=== PATIENT | female | born 1935 | race Caucasian/White ===

== ENCOUNTER → 2016-05-12 | Outpatient (CLI) | payer OTHER | LOC: BMCIMAGING 10:20 | PROVIDERS: ATTEND Internal Medicine Rheumatology | DX: Z13.820 Encounter for screening for osteoporosis (principal); M81.0 Age-related osteoporosis without current pathological fracture ==

== ENCOUNTER → 2016-11-02 | Outpatient (CLI) | payer OTHER | LOC: BMCIMAGING 13:09 | PROVIDERS: ATTEND Registered Nurse General Practice | DX: Z12.31 Encounter for screening mammogram for malignant neoplasm of breast (principal) | CPT/HCPCS: G0202 ==

== ENCOUNTER 2018-01-31 17:31 | Inpatient (IN) | payer OTHER ==
[2018-01-31] MEDS ORDERED: methylPREDNISolone SOD SUCC 125 MG/2 ML VIAL IVP ONE (17:58)
[2018-01-31] MEDS ORDERED: NS 500 ML IV ONE (17:58)
[2018-01-31] MEDS ORDERED: IPRATROPIUM/ALBUTEROL 3 ML DEYVIAL IH ONE (17:58)
[2018-01-31 18:00] LABS: PLATELET COUNT 339 10^3/uL (150-400)
[2018-01-31] MEDS ORDERED: IOPAMIDOL (ISOVUE 370) 100 ML BTL IV ONE (18:00)
--- NOTE | 2018-01-31 18:01 | CPEKG ---
Test Reason : OPEN Blood Pressure : / mmHG Vent. Rate : 101 BPM Atrial Rate : 102 BPM P-R Int : 200 ms QRS Dur : 121 ms QT Int : 359 ms P-R-T Axes : 219 -79 026 degrees QTc Int : 466 ms Sinus or ectopic atrial tachycardia Right bundle branch block Lateral infarct, old Borderline ST elevation, anterior leads Confirmed by Nitin Beltre ([id number]) on 01/31/2018 6:01:20 PM Referred By: Confirmed By:Nitin Beltre
--- NOTE | 2018-01-31 18:03 | EDPHY ---
H & P Stated Complaint: extended travel returned acute sob/hypoxia Time Seen by Provider: 01/31/18 17:46 HPI/ROS: CHIEF COMPLAINT: Shortness of breath HISTORY OF PRESENT ILLNESS: The patient is an 82-year-old female with a history of COPD, hypertension, chronic respiratory failure with the baseline saturation of 86-89% whose refused oxygen at home in the past who comes to the emergency department today complaining of shortness of breath and has an oxygen in the 70s at triage. She returned from a 3 week trip to the [facility] on Monday and Monday had severe leg cramping and shortness of breath. She is not on any blood thinners. She denies cardiac history other than hypertension. She has been diagnosed with bronchial spasm in the past as well. No recent fevers. Dry cough. Severity: Moderate Modifying factors: None REVIEW OF SYSTEMS: Constitutional: denies: chills, fever, recent illness, recent injury EENTM: denies: blurred vision, double vision, nose congestion Respiratory: See HPI Cardiac: denies: chest pain, irregular heart rate, lightheadedness, palpitations Gastrointestinal/Abdominal: denies: abdominal pain, diarrhea, nausea, vomiting, blood streaked stools Genitourinary: denies: dysuria, frequency, hematuria, pain Musculoskeletal: denies: joint pain, muscle pain Skin: denies: lesions, rash, jaundice, bruising Neurological: denies: headache, numbness, paresthesia, tingling, dizziness, weakness Hematologic/Lymphatic: denies: blood clots, easy bleeding, easy bruising Immunologic/allergic: denies: HIV/AIDS, transplant 10 systems reviewed and negative except as noted EXAM: GENERAL: Well-appearing, well-nourished and in no acute distress. HEAD: Atraumatic, normocephalic. EYES: Pupils equal round and reactive to light, extraocular movements intact, sclera anicteric, conjunctiva are normal. ENT: TMs normal, nares patent, oropharynx clear without exudates. Moist mucous membranes. NECK: Normal range of motion, supple without lymphadenopathy or JVD. LUNGS: Breath sounds clear to auscultation bilaterally and equal. No wheezes rales or rhonchi. HEART: Regular rate and rhythm without murmurs, rubs or gallops. ABDOMEN: Soft, nontender, normoactive bowel sounds. No guarding, no rebound. No masses appreciated. BACK: No CVA tenderness, no spinal tenderness, step-offs or deformities EXTREMITIES: Normal range of motion, no pitting or edema. No clubbing or cyanosis. NEUROLOGICAL: Cranial nerves II through XII grossly intact. Normal speech, normal gait. 5/5 strength, normal movement in all extremities, normal sensation , normal reflexes PSYCH: Normal mood, normal affect. SKIN: Warm, dry, normal turgor, no visible rashes or lesions. Source: Patient Exam Limitations: No limitations - Personal History Current Tetanus Diphtheria and Acellular Pertussis (TDAP): Yes Tetanus Vaccine Date: < 10 years - Medical/Surgical History Hx Asthma: No Hx Chronic Respiratory Disease: Yes Hx Diabetes: No Hx Cardiac Disease: Yes Hx Renal Disease: No Hx Cirrhosis: No Hx Alcoholism: No Hx HIV/AIDS: No Hx Splenectomy or Spleen Trauma: No Other PMH: COPD, HTN, osteoporsis, appendectomy, cervical spine surgery, tonsillectomy - Family History Significant Family History: No pertinent family hx - Social History Smoking Status: Former smoker Alcohol Use: Sober Drug Use: None Constitutional: Initial Vital Signs Temperature (C) 37.3 C 01/31/18 17:33 Heart Rate 122 H 01/31/18 17:33 Respiratory Rate 34 H 01/31/18 17:33 Blood Pressure 203/90 H 01/31/18 17:33 O2 Sat (%) 70 L 01/31/18 17:33 O2 Delivery Mode Nasal Cannula O2 (L/minute) 4 Allergies/Adverse Reactions: cephalexin monohydrate [From Keflex] Allergy (Verified 01/31/18 17:33) Penicillins Allergy (Verified 01/31/18 17:33) Home Medications: Medication Instructions Recorded Aspirin [Aspirin 81mg (*)] 81 mg PO MOWEFR@0800 07/23/14 Calcium/Magnesium/Vit D3 [Calcium 1 each PO DAILY 07/23/14 500 mg Tablet] Lisinopril [Zestril 20 mg (*)] 20 mg PO HS 07/23/14 Multivitamins [Multivitamin (*)] 1 each PO DAILY 07/23/14 [place]-3 Fatty Acids [Fish Oil 1000 1,000 mg PO BID 01/31/18 mg (*)] Tiotropium [place] [Spiriva 2 puffs IH DAILY 01/31/18 Respimat] Medical Decision Making - Diagnostics EKG Interpretation: An EKG obtained and was read and documented in trace view. Please see trace view for full reading and report. Sinus rhythm, right bundle branch block, slight ST depression anteriorly A repeat EKG obtained and was read and documented in trace view. Please see trace view for full reading and report. Similar to previous Imaging Results: Imaging Impressions Chest/Thorax CTA 01/31/18 17:58 Impression: 1. Small acute embolus within a right middle lobe pulmonary arterial branch. 2. Underlying centrilobular emphysema, with patchy infiltrates in the upper lobes bilaterally, without confluent pneumonia. Results called to Nitin Beltre M.D., at 6:30 p.m. at the time of the interpretation. Imaging: Discussed imaging studies w/ call center analyst Radiologist ED Course/Re-evaluation: 7:00 p.m. We discussed the CT results. The patient understands and is agreeable to the plan. I will start On anticoagulation. Discussed the case with hospital service who will admit. The patient does have patchy infiltrates that could be pneumonitis, bronchitis or early pneumonia. Currently no fever. Will observe. Differential Diagnosis: Partial list of the Differential diagnosis considered include but were not limited to; PE, pneumonia, reactive airway disease, bronchitis and although unlikely based on the history and physical exam, I also considered acute coronary disease, dissection, pneumothorax. - Data Points Laboratory Results: Laboratory Results 01/31/18 17:48 01/31/18 17:48 01/31/18 01/31/18 01/31/18 18:00 17:52 17:52 WBC RBC Hgb POC Hgb 15.6 gm/dL gm/dL (12.6-16.3) Hct POC Hct 46 % % (38-47) MCV MCH MCHC RDW Plt Count MPV Neut % (Auto) Lymph % (Auto) [place] % (Auto) Eos % (Auto) Baso % (Auto) Nucleat RBC Rel Count Absolute Neuts (auto) Absolute Lymphs (auto) Absolute Monos (auto) Absolute Eos (auto) Absolute Basos (auto) Absolute Nucleated RBC Immature Gran % Immature Gran # RBC/WBC/PLT Morphology Platelet Estimate PT 13.7 SEC SEC (12.0-15.0) INR 1.03 (0.83-1.16) APTT 27.8 SEC SEC (23.0-38.0) POC Sodium 138 mEq/L mEq/L (135-145) Sodium POC Potassium 3.8 mEq/L mEq/L (3.3-5.0) Potassium POC Chloride 101 mEq/L mEq/L (97-110) Chloride Carbon Dioxide Anion Gap POC BUN 13 mg/dL mg/dL (7-23) BUN Creatinine POC Creatinine 0.7 mg/dL mg/dL (0.6-1.0) Estimated GFR Glucose POC Glucose 139 mg/dL H mg/dL (70-100) Calcium POC Troponin I 0.00 ng/mL ng/mL (0.00-0.08) 01/31/18 01/31/18 17:48 17:48 WBC 17.85 10^3/uL H 10^3/uL (3.80-9.50) RBC 4.38 10^6/uL 10^6/uL (4.18-5.33) Hgb 13.9 g/dL g/dL (12.6-16.3) POC Hgb Hct 41.9 % % (38.0-47.0) POC Hct MCV 95.7 fL fL (81.5-99.8) MCH 31.7 pg pg (27.9-34.1) MCHC 33.2 g/dL g/dL (32.4-36.7) RDW 14.5 % % (11.5-15.2) Plt Count 339 10^3/uL 10^3/uL (150-400) MPV 10.5 fL fL (8.7-11.7) Neut % (Auto) 76.8 % H % (39.3-74.2) Lymph % (Auto) 10.3 % L % (15.0-45.0) [place] % (Auto) 11.5 % % (4.5-13.0) Eos % (Auto) 0.4 % L % (0.6-7.6) Baso % (Auto) 0.4 % % (0.3-1.7) Nucleat RBC Rel Count 0.0 % % (0.0-0.2) Absolute Neuts (auto) 13.71 10^3/uL H 10^3/uL (1.70-6.50) Absolute Lymphs (auto) 1.84 10^3/uL 10^3/uL (1.00-3.00) Absolute Monos (auto) 2.05 10^3/uL H 10^3/uL (0.30-0.80) Absolute Eos (auto) 0.07 10^3/uL 10^3/uL (0.03-0.40) Absolute Basos (auto) 0.07 10^3/uL 10^3/uL (0.02-0.10) Absolute Nucleated RBC 0.00 10^3/uL 10^3/uL (0-0.01) Immature Gran % 0.6 % % (0.0-1.1) Immature Gran # 0.11 10^3/uL H 10^3/uL (0.00-0.10) RBC/WBC/PLT Morphology TNP Platelet Estimate TNP PT INR APTT POC Sodium Sodium 136 mEq/L mEq/L (135-145) POC Potassium Potassium 4.2 mEq/L mEq/L (3.3-5.0) POC Chloride Chloride 101 mEq/L mEq/L (97-110) Carbon Dioxide 24 mEq/l mEq/l (22-31) Anion Gap 11 mEq/L mEq/L (6-14) POC BUN BUN 14 mg/dL mg/dL (7-23) Creatinine 0.7 mg/dL mg/dL (0.6-1.0) POC Creatinine Estimated GFR > 60 Glucose 134 mg/dL H mg/dL (70-100) POC Glucose Calcium 10.0 mg/dL mg/dL (8.5-10.4) POC Troponin I Medications Given: Albuterol/Ipratropium (Duoneb) 3 ml IH QID [facility] Stop: 07/30/18 20:59 Last Admin: 01/31/18 21:16 Dose: Not Given Enoxaparin Sodium (Lovenox) 70 mg SC BID [facility] Stop: 07/30/18 20:59 Last Admin: 01/31/18 19:15 Dose: 70 mg Sodium Chloride (Ns) 1,000 mls @ 100 mls/hr IV CONT [facility] Stop: 07/30/18 20:44 Last Admin: 01/31/18 21:56 Dose: 1,000 mls Levofloxacin/Dextrose (Levaquin 750 Mg (Premix)) 150 mls @ 100 mls/hr IV DAILY [facility] PRN Reason: Protocol Stop: 03/02/18 20:59 Last Admin: 01/31/18 21:54 Dose: 150 mls Discontinued Medications Albuterol/Ipratropium (Duoneb) 3 ml IH EDNOW ONE Stop: 01/31/18 17:59 Last Admin: 01/31/18 18:14 Dose: 3 ml Sodium Chloride (Ns) 500 mls @ 1,000 mls/hr IV EDNOW ONE PRN Reason: Protocol Stop: 01/31/18 18:27 Last Admin: 01/31/18 18:12 Dose: 500 mls Methylprednisolone Sodium Succinate (Solu-Medrol) 125 mg IVP EDNOW ONE Stop: 01/31/18 17:59 Last Admin: 01/31/18 18:13 Dose: 125 mg Point of Care Test Results: Chemistry 01/31/18 01/31/18 17:52 17:52 POC Sodium 138 mEq/L mEq/L (135-145) POC Potassium 3.8 mEq/L mEq/L (3.3-5.0) POC Chloride 101 mEq/L mEq/L (97-110) POC BUN 13 mg/dL mg/dL (7-23) POC Creatinine 0.7 mg/dL mg/dL (0.6-1.0) POC Glucose 139 mg/dL H mg/dL (70-100) POC Troponin I 0.00 ng/mL ng/mL (0.00-0.08) ISTAT H&H 01/31/18 17:52 POC Hgb 15.6 gm/dL gm/dL (12.6-16.3) POC Hct 46 % % (38-47) Departure - Departure Disposition: [facility] Acute Clinical Impression: Hypoxia Pulmonary embolism Qualifiers: Pulmonary embolism type: other Chronicity: acute Acute cor pulmonale presence: without acute cor pulmonale Qualified Code(s): I26.99 - Other pulmonary embolism without acute cor pulmonale Condition: Fair
[2018-01-31 18:13] LABS: INR 1.03 (0.83-1.16); PROTIME(PATIENT) 13.7 SEC (12.0-15.0)
--- NOTE | 2018-01-31 19:00 | CPEKG ---
Test Reason : OPEN Blood Pressure : / mmHG Vent. Rate : 098 BPM Atrial Rate : 098 BPM P-R Int : 142 ms QRS Dur : 127 ms QT Int : 365 ms P-R-T Axes : 077 -34 039 degrees QTc Int : 467 ms Sinus rhythm Biatrial enlargement Right bundle branch block Confirmed by Nitin Beltre ([id number]) on 01/31/2018 6:59:02 PM Referred By: Confirmed By:Nitin Beltre
[2018-01-31] MEDS: ENOXAPARIN 80 MG/0.8 ML SYR SC SCH (19:15)
[2018-01-31] MEDS ORDERED: ONDANSETRON 4 MG/2 ML VIAL IVP PRN (20:38)
[2018-01-31] MEDS ORDERED: ONDANSETRON DISINTEGRATING 4 MG TAB PO PRN (20:38)
[2018-01-31] MEDS ORDERED: oxyCODONE IR 5 MG TAB PO PRN (20:38)
[2018-01-31] MEDS ORDERED: ACETAMINOPHEN 325 MG TAB PO PRN (20:38)
[2018-01-31] MEDS ORDERED: HYDROCODONE/APAP 5/325 TAB PO PRN (20:38)
[2018-01-31] MEDS ORDERED: PROMETHAZINE HCL 25 MG/ML INJ IVP PRN (20:38)
[2018-01-31] MEDS ORDERED: ALBUTEROL 3 ML DEYVIAL IH PRN (20:38)
[2018-01-31] MEDS: IPRATROPIUM/ALBUTEROL 3 ML DEYVIAL IH SCH (21:16)
--- NOTE | 2018-01-31 21:30 | PDGENHP ---
History and Physical - Chief Complaint sob - History of Present Illness Patient is an 82 yo F with PMH of COPD, HTN presenting with complaints of sob, cough for the last week. She notes she recently came back from the [facility] , was on a flight for 13 hours, and when she got back she was having issues with feeling sob but she thought this was due to being back [place] altitude [place]. She has chronically low o2, 88-89% at baseline, and was previously told to use oxygen at all times but has chosen not to do that and when she arrived to the ER she had o2 sats in the 70s. She denied any chest pain or pain or swelling in her legs although she notes that last week she was having some leg cramping. She has had a productive cough today as well but no fever or chills. History Information - Allergies/Home Medication List Allergies/Adverse Reactions: cephalexin monohydrate [From Keflex] Allergy (Verified 01/31/18 17:33) Penicillins Allergy (Verified 01/31/18 17:33) Home Medications: Albuterol [Proventil] 1 - 2 puffs IH QID PRN 07/23/14 [Last Taken Unknown] Aspirin [Aspirin 81mg (*)] 81 mg PO DAILY 07/23/14 [Last Taken Unknown] Calcium/Magnesium/Vit D3 [Calcium 500 mg Tablet] 1 each PO DAILY 07/23/14 [Last Taken Unknown] Lisinopril [Zestril 20 mg (*)] 20 mg PO DAILY 07/23/14 [Last Taken 07/23/14] Multivitamins [Multivitamin (*)] 1 each PO DAILY 07/23/14 [Last Taken Unknown] Zoledronic Acid/Mannitol&Water [Zoledronic Acid 5 mg/100 ml] 5 mg IV Q12M [Last Taken 04/14/14] I have personally reviewed and updated: family history, medical history, social history, surgical history - Past Medical History COPD, hypertension - Surgical History Reports: appendectomy Additional surgical history: tonsillectomy. splenectomy. c spine surgery. arm surgery - Family History Positive for: non-pertinent - Social History Smoking Status: Former smoker Alcohol Use: Sober Drug Use: None Additional social history: travels a lot, lives independently, has daughter in town involved in her care Review of Systems Review of Systems: ROS: 10pt was reviewed & negative except for what was stated in HPI & below Physical Exam Physical Exam: Temp Pulse Resp BP Pulse Ox 36.8 C 97 18 120/61 89 L 01/31/18 20:34 01/31/18 20:34 01/31/18 20:34 01/31/18 20:34 01/31/18 20:34 O2 (L/minute) 6 Constitutional: no apparent distress, appears nourished Eyes: PERRL, anicteric sclera Ears, Nose, Mouth, Throat: moist mucous membranes, hearing normal Cardiovascular: regular rate and rhythym, no murmur, rub, or gallop Respiratory: reduced air movement, inspiratory crackles, bronchial breath sounds Gastrointestinal: normoactive bowel sounds, soft, non-tender abdomen Genitourinary: no bladder tenderness Skin: warm, normal color Musculoskeletal: full muscle strength Neurologic: AAOx3 Psychiatric: interacting appropriately, not anxious, not encephalopathic Lab Data & Imaging Review 01/31/18 17:48 01/31/18 17:48 WBC 17.85 10^3/uL (3.80-9.50) H 01/31/18 17:48 RBC 4.38 10^6/uL (4.18-5.33) 01/31/18 17:48 Hgb 13.9 g/dL (12.6-16.3) 01/31/18 17:48 POC Hgb 15.6 gm/dL (12.6-16.3) 01/31/18 17:52 Hct 41.9 % (38.0-47.0) 01/31/18 17:48 POC Hct 46 % (38-47) 01/31/18 17:52 MCV 95.7 fL (81.5-99.8) 01/31/18 17:48 MCH 31.7 pg (27.9-34.1) 01/31/18 17:48 MCHC 33.2 g/dL (32.4-36.7) 01/31/18 17:48 RDW 14.5 % (11.5-15.2) 01/31/18 17:48 Plt Count 339 10^3/uL (150-400) 01/31/18 17:48 MPV 10.5 fL (8.7-11.7) 01/31/18 17:48 Neut % (Auto) 76.8 % (39.3-74.2) H 01/31/18 17:48 Lymph % (Auto) 10.3 % (15.0-45.0) L 01/31/18 17:48 [place] % (Auto) 11.5 % (4.5-13.0) 01/31/18 17:48 Eos % (Auto) 0.4 % (0.6-7.6) L 01/31/18 17:48 Baso % (Auto) 0.4 % (0.3-1.7) 01/31/18 17:48 Nucleat RBC Rel Count 0.0 % (0.0-0.2) 01/31/18 17:48 Absolute Neuts (auto) 13.71 10^3/uL (1.70-6.50) H 01/31/18 17:48 Absolute Lymphs (auto) 1.84 10^3/uL (1.00-3.00) 01/31/18 17:48 Absolute Monos (auto) 2.05 10^3/uL (0.30-0.80) H 01/31/18 17:48 Absolute Eos (auto) 0.07 10^3/uL (0.03-0.40) 01/31/18 17:48 Absolute Basos (auto) 0.07 10^3/uL (0.02-0.10) 01/31/18 17:48 Absolute Nucleated RBC 0.00 10^3/uL (0-0.01) 01/31/18 17:48 Immature Gran % 0.6 % (0.0-1.1) 01/31/18 17:48 Immature Gran # 0.11 10^3/uL (0.00-0.10) H 01/31/18 17:48 RBC/WBC/PLT Morphology TNP 01/31/18 17:48 Platelet Estimate TNP 01/31/18 17:48 PT 13.7 SEC (12.0-15.0) 01/31/18 18:00 INR 1.03 (0.83-1.16) 01/31/18 18:00 APTT 27.8 SEC (23.0-38.0) 01/31/18 18:00 POC Sodium 138 mEq/L (135-145) 01/31/18 17:52 Sodium 136 mEq/L (135-145) 01/31/18 17:48 POC Potassium 3.8 mEq/L (3.3-5.0) 01/31/18 17:52 Potassium 4.2 mEq/L (3.3-5.0) 01/31/18 17:48 POC Chloride 101 mEq/L (97-110) 01/31/18 17:52 Chloride 101 mEq/L (97-110) 01/31/18 17:48 Carbon Dioxide 24 mEq/l (22-31) 01/31/18 17:48 Anion Gap 11 mEq/L (6-14) 01/31/18 17:48 POC BUN 13 mg/dL (7-23) 01/31/18 17:52 BUN 14 mg/dL (7-23) 01/31/18 17:48 Creatinine 0.7 mg/dL (0.6-1.0) 01/31/18 17:48 POC Creatinine 0.7 mg/dL (0.6-1.0) 01/31/18 17:52 Estimated GFR > 60 01/31/18 17:48 Glucose 134 mg/dL (70-100) H 01/31/18 17:48 POC Glucose 139 mg/dL (70-100) H 01/31/18 17:52 Calcium 10.0 mg/dL (8.5-10.4) 01/31/18 17:48 POC Troponin I 0.00 ng/mL (0.00-0.08) 01/31/18 17:52 Visualized and Interpreted imaging results: Yes Interpretation: chest CTA: small right middle lobe PE, centrilobular emphysema, bilateral upper lobe infiltrates Visualized and Interpreted EKG results: Yes EKG Interpretation: Positive for: normal sinsus rhythm, right bundle branch block Assessment & Plan Assessment: Hypoxia (Acute) Pulmonary embolism (Acute) 82 yo F with hx of copd, htn presenting with acute on chronic hypoxic respiratory failure in setting of acute PE and suspected pna # acute on chronic hypoxic respiratory failure: with o2 sats in the 70s on RA on arrival with baseline in the high 80s that she is not chronically on o2 for. Suspect this is multifactorial and related to pna and copd exacerbation as well as small PE (may be less due to the PE). # acute PE: provoked by recent long airplane ride, started on lovenox, will need to discuss with her further in am transitioning either to DOAC versus warfarin, suspect she would prefer DOAC based on limited conversation # pna: on CT noted to have bilateral upper lobe patchy infiltrates along with productive cough suspect this represents pna, possibly viral. Viral PCR panel ordered, started on levofloxacin for now. # copd with acute exacerbation: moving air relatively well but some scattered wheeze and diminished throughout,will start scheduled nebs and monitor, holding off on steroids for now # sepsis: meeting sirs criteria with tachycardia, tachypnea and elevated wbc, HD stable, lactic acid and blood cultures not obtained yet but will add on # htn: initially quite elevated, now trending down on its own, will resume home medications # IP status, suspect patient will require > 48 hours stay for eval/mgmt of above Patient new to my care. Old records reviewed and summarized as above. Care plan reviewed with ER doctor as above.
[2018-01-31] MEDS: NS 1,000 ML IV SCH (21:56)
[2018-02-01] MEDS: BENZONATATE 100 MG CAP PO PRN ×2 (05:36→15:53)
[2018-02-01 05:46] LABS: PLATELET COUNT 322 10^3/uL (150-400)
[2018-02-01] MEDS: IPRATROPIUM/ALBUTEROL 3 ML DEYVIAL IH SCH ×4 (08:52→21:50)
[2018-02-01] MEDS: NS 1,000 ML IV SCH (09:03)
[2018-02-01] MEDS: ENOXAPARIN 80 MG/0.8 ML SYR SC SCH ×2 (09:06→20:28)
[2018-02-01] MEDS: GUAIFENESIN/DM 10 ML UDCUP PO PRN ×2 (12:01→20:37)
--- NOTE | 2018-02-01 12:04 | HOSPPROG ---
Hospitalist Progress Note Assessment/Plan: 82 yo F with hx of copd, htn presenting with acute on chronic hypoxic respiratory failure in setting of acute PE and suspected pna. First encounter, chart reviewed. *PE -provoked due to a recent long airplane ride -on treatment dose of LMWH -she will check w [employer] tomorrow to see for coverage for Italo Valadez *PNA -respiratory panel is negative -will check a procalcitonin -blood cx pending *acute on chronic respiratory failure -baseline runs in the high 80's -currently on 5 liters -suspect this is multifactorial due to pna, emphysema, PE is small *COPD w acute exacerbation, CTA notes emphysema -nebs -may need steroids *sepsis -tachypnea resolved, ongoing leukocytosis *htn -currently hypotensive *plan: she will require another midnight stay due to high O2 needs, To use IS hourly Subjective: Meli has no complaints, overall feeling fine. Objective: Vital Signs Temp Pulse Resp BP Pulse Ox 36.7 C 84 22 H 99/64 L 90 L 02/01/18 11:51 02/01/18 11:51 02/01/18 11:51 02/01/18 11:51 02/01/18 11:51 Microbiology 01/31/18 21:55 Respiratory Panel (PCR) - Final Nasal, Sinus - [place] Viral Transport No Organism Detected By Pcr Laboratory Results 02/01/18 05:36 02/01/18 05:36 01/31/18 02/01/18 02/02/18 05:59 05:59 05:59 Intake Total 1095 Balance 1095 PT 13.7 SEC (12.0-15.0) 01/31/18 18:00 INR 1.03 (0.83-1.16) 01/31/18 18:00 - Physical Exam Constitutional: no apparent distress, appears nourished, not in pain Eyes: PERRL Ears, Nose, Mouth, Throat: hearing normal Cardiovascular: regular rate and rhythym Respiratory: reduced air movement (base), expiratory wheeze (noted on anterior side of her lungs), rhonchi (in right base) Gastrointestinal: normoactive bowel sounds Skin: warm Musculoskeletal: full muscle strength Neurologic: AAOx3 Psychiatric: interacting appropriately ICD10 Worksheet Patient Problems: Problems Problem Status Onset Hypoxia Acute Pulmonary embolism Acute Humeral shaft fracture Acute
--- NOTE | 2018-02-01 13:29 | ASMTCASEMG ---
Living Arrangements What is your living Answers: Alone arrangement? Who do you live with? Type Of Residence What kind of residence do Answers: House you live in? Discharge Plan Comments Coordination Status Comments Notes: Patient is an 82yo female who lives independently and has a daughter in town who participates in her care. Patient has a hx of COPD and presented to [facility] with acute on chronic hypoxic respiratory failure, in the setting of pulmonary embolism, and suspected PNA. Cardiac rehab eval and transitional care have been ordered for the patient. D/C plan TBD. CM will follow. Date Signed: 02/01/2018 01:29 PM Electronically Signed By:Elizabeth Wyatt LCSW
[2018-02-01] MEDS: TIOTROPIUM INHALER 18 MCG/DOSE 5 DOSE/MDI IH SCH (18:37)
[2018-02-01] MEDS: LISINOPRIL 20 MG TAB PO SCH (20:29)
[2018-02-02] MEDS: IPRATROPIUM/ALBUTEROL 3 ML DEYVIAL IH SCH ×4 (05:46→21:01)
[2018-02-02] MEDS: BENZONATATE 100 MG CAP PO PRN ×2 (08:21→22:59)
[2018-02-02] MEDS: ENOXAPARIN 80 MG/0.8 ML SYR SC SCH (08:21)
[2018-02-02] MEDS: VIT D3 PO SCH (08:27)
[2018-02-02] MEDS: MAGNESIUM PO SCH (08:27)
[2018-02-02] MEDS: CALCIUM PO SCH (08:27)
[2018-02-02] MEDS: GUAIFENESIN/DM 10 ML UDCUP PO PRN (09:56)
[2018-02-02] MEDS: TIOTROPIUM INHALER 18 MCG/DOSE 5 DOSE/MDI IH SCH (11:04)
[2018-02-02] MEDS: FLUTICASONE/SALMETER 250/50MCG DISKUS IH SCH ×2 (12:18→21:02)
--- NOTE | 2018-02-02 16:40 | HOSPPROG ---
Hospitalist Progress Note Assessment/Plan: 82 yo F with hx of copd, htn presenting with acute on chronic hypoxic respiratory failure in setting of acute PE and suspected pna. First encounter, chart reviewed. *PE -provoked due to a recent long airplane ride -started Xarelto today *PNA -respiratory panel is negative -procalcitonin is elevated, still on O2 -blood cx no growth *acute on chronic respiratory failure -baseline runs in the high 80's -currently on 3 liters -suspect this is multifactorial due to pna, emphysema, PE is small *COPD w acute exacerbation, CTA notes emphysema -nebs -may need steroids/ added Advair *sepsis -tachypnea resolved, ongoing leukocytosis *htn -bp elevated this morning *plan: continue Levaquin but will change to oral Subjective: Meli is still feeling very short of breath. Objective: Vital Signs Temp Pulse Resp BP Pulse Ox 37.5 C 82 18 151/77 H 92 02/02/18 15:07 02/02/18 16:00 02/02/18 16:00 02/02/18 15:07 02/02/18 16:00 Laboratory Results 02/01/18 05:36 02/01/18 05:36 02/01/18 02/02/18 02/03/18 05:59 05:59 05:59 Intake Total 1095 500 300 Balance 1095 500 300 PT 13.7 SEC (12.0-15.0) 01/31/18 18:00 INR 1.03 (0.83-1.16) 01/31/18 18:00 - Physical Exam Constitutional: no apparent distress, appears nourished, not in pain Eyes: PERRL Ears, Nose, Mouth, Throat: hearing normal Cardiovascular: regular rate and rhythym Respiratory: no respiratory distress, reduced air movement, rhonchi (right base) Skin: warm Musculoskeletal: full muscle strength Neurologic: AAOx3 Psychiatric: interacting appropriately ICD10 Worksheet Patient Problems: Problems Problem Status Onset Hypoxia Acute Pulmonary embolism Acute Humeral shaft fracture Acute
[2018-02-02] MEDS: RIVAROXABAN 15 MG TAB PO SCH (17:35)
[2018-02-02] MEDS: LISINOPRIL 20 MG TAB PO SCH (20:00)
--- NOTE | 2018-02-02 21:12 | PDMN ---
Medical Necessity Medical necessity: [facility]160 Sepsis A-3 days: 82 yo w/ SOB and cough, WBC 17.85, dx w/ acute on chronic hypoxic resp fx, sats in 70s on RA, acute PE and PNA w/ acute exacerbation of COPD. Meets sepsis criteria w/ tachy, tachypnea and leukocytosis. IV antibx and nebs started and to cont. IP status as pt will require >48 hrs stay for eval/mgmt. of above. Hx COPD, HTN
[2018-02-03] MEDS: GUAIFENESIN/DM 10 ML UDCUP PO PRN (00:48)
[2018-02-03] MEDS: IPRATROPIUM/ALBUTEROL 3 ML DEYVIAL IH SCH ×4 (05:27→22:08)
[2018-02-03] MEDS: VIT D3 PO SCH (07:57)
[2018-02-03] MEDS: RIVAROXABAN 15 MG TAB PO SCH ×2 (07:57→18:10)
[2018-02-03] MEDS: CALCIUM PO SCH (07:57)
[2018-02-03] MEDS: BENZONATATE 100 MG CAP PO PRN ×2 (07:57→20:38)
[2018-02-03] MEDS: MAGNESIUM PO SCH (07:57)
[2018-02-03] MEDS: FLUTICASONE/SALMETER 250/50MCG DISKUS IH SCH ×2 (11:00→22:15)
[2018-02-03] MEDS: TIOTROPIUM INHALER 18 MCG/DOSE 5 DOSE/MDI IH SCH (11:49)
--- NOTE | 2018-02-03 12:02 | ASMTCMCOM ---
CM Note CM Note Notes: Pts case discussed w/ PEREZ Klein. Araceli Pandey NP started blood thinners yesterday. Pt will most likely d/c without any needs when medically stable. Pt observed ambulating independently. Pt is currently on 3-4L of o2. CM available for changes. Plan: Independent Date Signed: 02/03/2018 12:01 PM Electronically Signed By:RADHA Teague
--- NOTE | 2018-02-03 12:26 | HOSPPROG ---
Hospitalist Progress Note Assessment/Plan: 82 yo F with hx of copd, htn presenting with acute on chronic hypoxic respiratory failure in setting of acute PE and suspected pna. *PE -provoked due to a recent long airplane ride -started Xarelto *PNA -respiratory panel is negative -procalcitonin is elevated, still on O2 -blood cx no growth *acute on chronic respiratory failure -baseline runs in the high 80's -currently on 3 liters -suspect this is multifactorial due to pna, emphysema, PE is small *COPD w acute exacerbation, CTA notes emphysema -nebs -may need steroids/ added Advair *sepsis -tachypnea resolved, ongoing leukocytosis *htn -bp elevated this morning *plan: continue Levaquin but will change to oral Subjective: Meli is slowly feeling better, still short of breath. Objective: Vital Signs Temp Pulse Resp BP Pulse Ox 36.6 C 71 18 114/61 91 L 02/03/18 11:32 02/03/18 11:32 02/03/18 11:32 02/03/18 11:32 02/03/18 11:32 Laboratory Results 02/01/18 05:36 02/01/18 05:36 02/02/18 02/03/18 02/04/18 05:59 05:59 05:59 Intake Total 500 650 Output Total 1050 Balance 500 -400 PT 13.7 SEC (12.0-15.0) 01/31/18 18:00 INR 1.03 (0.83-1.16) 01/31/18 18:00 - Physical Exam Constitutional: appears nourished, not in pain Eyes: PERRL Ears, Nose, Mouth, Throat: hearing normal Cardiovascular: regular rate and rhythym Respiratory: no respiratory distress, reduced air movement (mid lobes down, poor expiratory phase) Skin: warm Musculoskeletal: generalized weakness Neurologic: AAOx3 Psychiatric: interacting appropriately ICD10 Worksheet Patient Problems: Problems Problem Status Onset Hypoxia Acute Pulmonary embolism Acute Humeral shaft fracture Acute
[2018-02-03] MEDS: LISINOPRIL 20 MG TAB PO SCH (20:38)
[2018-02-04] MEDS: GUAIFENESIN/DM 10 ML UDCUP PO PRN
[2018-02-04] MEDS: IPRATROPIUM/ALBUTEROL 3 ML DEYVIAL IH SCH ×4 (06:02→21:20)
[2018-02-04] MEDS: CALCIUM PO SCH (08:03)
[2018-02-04] MEDS: MAGNESIUM PO SCH (08:03)
[2018-02-04] MEDS: RIVAROXABAN 15 MG TAB PO SCH ×2 (08:03→18:06)
[2018-02-04] MEDS: VIT D3 PO SCH (08:03)
[2018-02-04] MEDS: FLUTICASONE/SALMETER 250/50MCG DISKUS IH SCH ×2 (10:40→21:20)
[2018-02-04] MEDS: TIOTROPIUM INHALER 18 MCG/DOSE 5 DOSE/MDI IH SCH (10:47)
[2018-02-04] MEDS ORDERED: predniSONE 20 MG TAB PO ONE (12:33)
[2018-02-04] MEDS: guaiFENesin 600 MG TAB.ER PO SCH ×2 (13:02→21:52)
--- NOTE | 2018-02-04 13:39 | HOSPPROG ---
Hospitalist Progress Note Assessment/Plan: 82 yo F with hx of copd, htn presenting with acute on chronic hypoxic respiratory failure in setting of acute PE and suspected pna. *PE -provoked due to a recent long airplane ride -started Xarelto (son confirmed her insurance will cover) *PNA -respiratory panel is negative -procalcitonin is elevated, still on O2 -blood cx no growth -day # 5 for Levaquin *acute on chronic respiratory failure -baseline runs in the high 80's -currently on 3-4 liters -will get a chest x ray today -suspect this is multifactorial due to pna, emphysema, PE is small *COPD w acute exacerbation, CTA notes emphysema -nebs -added oral steroids/ added Advair *sepsis -tachypnea resolved, ongoing leukocytosis *htn -bp stBLE *plan: Will get a chest x ray to further eval, suspect her main issue is the COPD. Will add a PPI while on the steroids. On dc, will need scripts for Xarelto, Advair. Will get an echo for further evaluation. Updated patient and her family about the plan of care, will need O2 on dc. Subjective: Meli is wanting to go home but understands she needs a bit more evaluation. Objective: Vital Signs Temp Pulse Resp BP Pulse Ox 37.1 C 83 22 H 138/53 H 89 L 02/04/18 11:35 02/04/18 11:35 02/04/18 11:35 02/04/18 11:35 02/04/18 11:35 Laboratory Results 02/01/18 05:36 02/01/18 05:36 02/03/18 02/04/18 02/05/18 05:59 05:59 05:59 Intake Total 650 1040 Output Total 1050 450 Balance -400 590 PT 13.7 SEC (12.0-15.0) 01/31/18 18:00 INR 1.03 (0.83-1.16) 01/31/18 18:00 - Physical Exam Constitutional: no apparent distress, appears nourished Eyes: PERRL Ears, Nose, Mouth, Throat: hearing normal Cardiovascular: regular rate and rhythym Respiratory: no respiratory distress, reduced air movement (but has better breath sounds today) Gastrointestinal: normoactive bowel sounds Skin: warm, normal color Musculoskeletal: full muscle strength Neurologic: AAOx3 Psychiatric: interacting appropriately ICD10 Worksheet Patient Problems: Problems Problem Status Onset Hypoxia Acute Pulmonary embolism Acute Humeral shaft fracture Acute
[2018-02-04] MEDS: PANTOPRAZOLE SODIUM 40 MG TAB PO SCH (14:07)
[2018-02-04] MEDS: Tiotropium Bromide [Spiriva Respimat] IH SCH (17:12)
[2018-02-04] MEDS: LISINOPRIL 20 MG TAB PO SCH (21:53)
[2018-02-05] MEDS: IPRATROPIUM/ALBUTEROL 3 ML DEYVIAL IH SCH ×4 (05:14→20:39)
[2018-02-05] MEDS: guaiFENesin 600 MG TAB.ER PO SCH ×2 (08:31→21:06)
[2018-02-05] MEDS: RIVAROXABAN 15 MG TAB PO SCH ×2 (08:32→17:54)
[2018-02-05] MEDS: predniSONE 20 MG TAB PO SCH (08:32)
[2018-02-05] MEDS: PANTOPRAZOLE SODIUM 40 MG TAB PO SCH (08:32)
--- NOTE | 2018-02-05 09:16 | ECHO ---
[email or web address] [address] Main: [phone] Fax: [email or web address] Echocardiogram Name: SILVIA BOSCH MR#: [id number] Study Date: 02/05/2018 Study Time: 07:33 AM Date of : 1935 Age: 82 year(s) Height: 160 cm (63 in.) Weight: 68.04 kg (150 lb.) BSA: 1.71 m2 Gender: Female Examination: Echo Indication: Shortness of breath, concern for chf Image Quality: Adequate Contrast: Requested by: Araceli Pandey BP: / Heart Rate: Rhythm: Indication: Shortness of breath, concern for chf Procedure Staff Digital Campaign Manager: Carolyn Montelongo [facility] Reading Physician: Katie Beebe MD Requesting Provider: Conclusions: Normal size left ventricle. Mild to moderate LVH. Normal global systolic LV function. EF is 67 %. No regional wall motion abnormality. Normal size right ventricle. Normal RV function. The left atrium is normal in size. Mild mitral valve regurgitation is present. Trivial calcific aortic valve stenosis. Moderate aortic valve regurgitation is present. Moderate tricuspid regurgitation is present. The pulmonary artery pressure is moderately increased. Right ventricular systolic pressure measures 59mmHg. Mildly dilated ascending aorta measuring 4.1 cm. Compared with 07/24/2014 the ascending aorta is now mildly dilated. The PA pressure has increased. Measurements: Chambers Valvular Assessment AV/MV Valvular Assessment TV/PV Normal Normal Normal Name Value Range Name Value Range Name Value Range Ao Sylwia (2D): 3.1 cm (1.4 cm-2.6 AV Vmax: 1.98 m/s (1 m/s-1.7 TR Vmax: 3.68 mm/s ( - ) cm) m/s) TR PGmax: 54 mmHg ( - ) IVSd (2D): 1.3 cm (0.6 cm-1.1 AV maxP mmHg ( - ) syst. PAP: 59 mmHg ( - ) cm) AV meanP mmHg ( - ) PV Vmax: 1.22 m/s (0.6 m/s-0.9 LVDd (2D): 4.3 cm (3.9 cm-5.3 ISAAC (VTI): 2.1 cm ( - ) m/s) cm) AR (PHT): 515 ms ( - ) PV PGmax: 6 mmHg ( - ) LVDs (2D): 2.6 cm (2.1 cm-4 MV E Vmax: 0.65 m/s ( - ) cm) MV A Vmax: 1.06 m/s ( - ) LVPWd (2D): 1.2 cm ( - ) MV E/A: 0.61 ( - ) Patient: SILVIA BOSCH Study Date: 02/05/2018 Page 1 of 2 07:33 AM LVOTd 1.8 cm 1.8 cm mm MV PHT: 0.097 s ( - ) LVEF (BP): 67 % (>=55 %) MVA (PHT): 2.3 s ( - ) RVDd(2D): 3.4 cm (1.9 cm-3.8 cmmm) Continued Measurements: Chambers Valvular Assessment AV/MV Valvular Assessment TV/PV Name Value Name Value Name Value LADs: 3.9 cm MV DecTime: 338 m/s CVP (est.): 5 mmHg LADs Lon.1 cm MV E' Septal: 0.06 m/s LA Area: 18.5 cm2 MV E/E' Septal: 10.40 LA Volume: 56 ml MV E/E' Lateral: 11.30 LA Volume Index: 32.7 ml/m2 AR Vmax: 4.54 cm/s RA Area: 17.7 cm2 Additional Vessels Name Value Ao Ascendin.1 cm Inferior Vena Cava: 1.7 cm Findings: Left Ventricle: Normal size left ventricle. Mild to moderate LVH. Normal global systolic LV function. EF is 67 %. No regional wall motion abnormality. Unable to assess diastolic dysfunction. Right Ventricle: Normal size right ventricle. Normal RV function. Left Atrium: The left atrium is normal in size. Right Atrium: The right atrium is normal in size. Mitral Valve: The mitral valve is normal in appearance. Mild mitral valve regurgitation is present. No mitral stenosis is present. Aortic Valve: The aortic valve is tri-leaflet. Aortic sclerosis is present. Trivial calcific aortic valve stenosis. Moderate aortic valve regurgitation is present. Tricuspid Valve: The tricuspid valve is normal in appearance and function. Moderate tricuspid regurgitation is present. The pulmonary artery pressure is moderately increased. Right ventricular systolic pressure measures 59mmHg. Pulmonic Valve: The pulmonic valve is normal in appearance and function. There is no pulmonic regurgitation seen. Aorta: The aorta is normal. Normal size aortic root measuring 3.1 cm. Mildly dilated ascending aorta measuring 4.1 cm. IVC: The IVC is normal sized. Pericardium: No pericardial effusion. There is pericardial fat. No pleural effusion. (No Signature Object) Patient: SILVIA BOSCH Study Date: 02/05/2018 Page 2 of 2 07:33 AM [id number]
[2018-02-05] MEDS: Tiotropium Bromide [Spiriva Respimat] IH SCH (09:52)
[2018-02-05] MEDS: FLUTICASONE/SALMETER 250/50MCG DISKUS IH SCH ×2 (09:53→20:40)
[2018-02-05] MEDS: CALCIUM PO SCH (10:45)
[2018-02-05] MEDS: VIT D3 PO SCH (10:45)
[2018-02-05] MEDS: MAGNESIUM PO SCH (10:45)
[2018-02-05] MEDS ORDERED: FUROSEMIDE 20 MG/2 ML VIAL IVP ONE (14:00)
--- NOTE | 2018-02-05 14:00 | HOSPPROG ---
Hospitalist Progress Note Assessment/Plan: 82 yo F with hx of copd, htn presenting with acute on chronic hypoxic respiratory failure in setting of acute PE and suspected pna. First encounter, chart reviewed. D/W RN at bedside. *PE -provoked due to a recent long airplane ride -Xarelto (son confirmed her insurance will cover) -prescription at time of DC *PNA -respiratory panel is negative -procalcitonin is elevated, still on O2 -blood cx no growth -day #6 for Levaquin *acute on chronic respiratory failure -baseline runs in the high 80's -currently on 3-4 liters -chest x ray, personally reviewed shows CHF /PNA -suspect this is multifactorial due to pna, emphysema, PE is small *COPD w acute exacerbation, CTA notes emphysema -nebs -oral steroids/Advair *CHF -per cxr -ECHO stable -BNP low -give 1 time dose IV lasix -b pleural effusions *sepsis -tachypnea resolved, ongoing leukocytosis *htn -bp stable *plan: Lasix follow Will add a PPI while on the steroids. On dc, will need scripts for Xarelto, Advair. Updated patient about the plan of care, will need O2 on dc. Subjective: Up in chair. Still feeling very sob. No pain. No other issues. Objective: Vital Signs Temp Pulse Resp BP Pulse Ox 36.7 C 74 16 126/57 H 92 02/05/18 11:56 02/05/18 11:56 02/05/18 11:56 02/05/18 11:56 02/05/18 11:56 Laboratory Results 02/01/18 05:36 02/05/18 05:11 02/04/18 02/05/18 02/06/18 05:59 05:59 05:59 Intake Total 1040 150 120 Output Total 450 1925 500 Balance 590 -1775 -380 PT 13.7 SEC (12.0-15.0) 01/31/18 18:00 INR 1.03 (0.83-1.16) 01/31/18 18:00 - Physical Exam Constitutional: no apparent distress, not in pain, uncomfortable Eyes: PERRL, anicteric sclera, EOMI Ears, Nose, Mouth, Throat: moist mucous membranes, hearing normal, ears appear normal Cardiovascular: No JVD, No tachycardia, No edema Respiratory: no rales or rhonchi, reduced air movement, expiratory wheeze Gastrointestinal: normoactive bowel sounds, No tenderness, No ascites Skin: warm, normal color, No mottled Musculoskeletal: normal joint ROM, no joint effusions, generalized weakness Neurologic: AAOx3 Psychiatric: interacting appropriately, not anxious, not encephalopathic, thought process linear ICD10 Worksheet Patient Problems: Problems Problem Status Onset Humeral shaft fracture Acute Pulmonary embolism Acute Hypoxia Acute
[2018-02-05] MEDS: LISINOPRIL 20 MG TAB PO SCH (21:07)
[2018-02-06] MEDS: IPRATROPIUM/ALBUTEROL 3 ML DEYVIAL IH SCH ×3 (05:18→16:19)
[2018-02-06] MEDS: PANTOPRAZOLE SODIUM 40 MG TAB PO SCH ×2 (08:56→15:04)
[2018-02-06] MEDS: guaiFENesin 600 MG TAB.ER PO SCH ×2 (08:56→20:34)
[2018-02-06] MEDS: RIVAROXABAN 15 MG TAB PO SCH ×2 (08:57→18:25)
[2018-02-06] MEDS: predniSONE 20 MG TAB PO SCH (08:57)
[2018-02-06] MEDS: MAGNESIUM PO SCH (09:08)
[2018-02-06] MEDS: VIT D3 PO SCH (09:08)
[2018-02-06] MEDS: CALCIUM PO SCH (09:08)
[2018-02-06] MEDS: Tiotropium Bromide [Spiriva Respimat] IH SCH (10:42)
[2018-02-06] MEDS: FLUTICASONE/SALMETER 250/50MCG DISKUS IH SCH ×2 (11:09→20:35)
--- NOTE | 2018-02-06 12:58 | HOSPPROG ---
Hospitalist Progress Note Assessment/Plan: 82 yo F with hx of copd, htn presenting with acute on chronic hypoxic respiratory failure in setting of acute PE and suspected pna. *PE -provoked due to a recent long airplane ride -Xarelto (son confirmed her insurance will cover) -prescription at time of DC *PNA -respiratory panel is negative -procalcitonin is elevated, still on O2 -blood cx no growth -day #7 for Levaquin *acute on chronic respiratory failure -baseline not on O2 -currently on 3 liters -chest x ray, personally reviewed shows CHF /PNA -suspect this is multifactorial due to pna, emphysema, PE is small *COPD w acute exacerbation, CTA notes emphysema -nebs PRN -oral steroids/Advair *CHF -per cxr -ECHO stable -BNP low -gave 1 time dose IV lasix -b pleural effusions *sepsis -tachypnea resolved, ongoing leukocytosis *htn -bp stable *plan: supportive care follow On dc, will need scripts for Xarelto, Advair. Updated patient about the plan of care, will need O2 on dc. Subjective: Up in chair. Feels a bit better today. Still SOB with acitivity. Objective: Vital Signs Temp Pulse Resp BP Pulse Ox 36.6 C 68 20 115/72 92 02/06/18 11:28 02/06/18 11:28 02/06/18 11:28 02/06/18 11:28 02/06/18 11:28 Microbiology 01/31/18 22:23 Blood Culture - Final Blood 01/31/18 22:18 Blood Culture - Final Blood Laboratory Results 02/01/18 05:36 02/05/18 05:11 02/05/18 02/06/18 02/07/18 05:59 05:59 05:59 Intake Total 150 1350 Output Total 1925 2400 300 Balance -1775 -1050 -300 PT 13.7 SEC (12.0-15.0) 01/31/18 18:00 INR 1.03 (0.83-1.16) 01/31/18 18:00 - Physical Exam Constitutional: appears nourished, obese Eyes: PERRL, anicteric sclera Ears, Nose, Mouth, Throat: moist mucous membranes, hearing normal Cardiovascular: No JVD, No edema Respiratory: no rales or rhonchi, reduced air movement Gastrointestinal: No tenderness, No ascites Skin: warm, normal color Musculoskeletal: no joint effusions, generalized weakness Neurologic: AAOx3 Psychiatric: interacting appropriately, not anxious, not encephalopathic ICD10 Worksheet Patient Problems: Problems Problem Status Onset Humeral shaft fracture Acute Pulmonary embolism Acute Hypoxia Acute
[2018-02-06] MEDS ORDERED: IPRATROPIUM/ALBUTEROL 3 ML DEYVIAL IH PRN (17:03)
[2018-02-06] MEDS: LISINOPRIL 20 MG TAB PO SCH (20:34)
[2018-02-07] MEDS: RIVAROXABAN 15 MG TAB PO SCH (08:32)
[2018-02-07] MEDS: FLUTICASONE/SALMETER 250/50MCG DISKUS IH SCH (08:34)
[2018-02-07] MEDS: predniSONE 20 MG TAB PO SCH (08:35)
[2018-02-07] MEDS: guaiFENesin 600 MG TAB.ER PO SCH (08:38)
[2018-02-07] MEDS: Tiotropium Bromide [Spiriva Respimat] IH SCH (08:38)
--- NOTE | 2018-02-07 09:27 | PDHOMEO2F ---
Home Oxygen Face to Face Home Orders: I certify that a physician or a nurse practitioner or physician's furniture removalist's assistant has had a [id number] encounter with this patient on the date of this order due to the diagnosis listed, which relates to the primary reason the patient requires home oxygen. Alternative treatments have been tried, or considered, and deemed ineffective. It is anticipated that supplemental oxygen will result in improvement with treatment. Home oxygen qualifying diagnosis: COPD SpO2 on room air (%): 86 Frequency of home oxygen needed: continuous Home oxygen liters per minute: 3 Home oxygen delivery device: nasal cannula Concentrator: Yes E-tanks for mobility and back up: Yes If ordering portable O2, is the patient mobile in the home?: Yes I certify that, based on these findings, the home oxygen is medically necessary for this patient for the following length of time. Length of time home oxygen needed: 1 month
--- NOTE | 2018-02-07 09:47 | PDIAF ---
- Diagnosis Diagnosis: pna Code Status: Full Code - Medication Management Discharge Medications: electronically signed and located in the Home Medication List. PICC Care - Routine: N/A - Orders Services needed: Home Care, Registered Nurse, Physical Therapy Home Care Face to Face: I certify that this patient was under my care and that I had the required [id number] encounter meeting the encounter requirements on the discharge day. My findings support the fact that the patient is homebound as defined in Home Care Face to Face Continued: CMS Chapter 7 Medicare Benefits Manual 30.1.1 , The condition of the patient is such that there exists a normal inability to leave home and consequently, leaving home would require a considerable and taxing effort. Isolation Type: None Diet Recommendation: no restrictions on diet Additional Instructions: Please see your primary care physician on Monday02/09/18. - Follow Up Care Current Providers and Referrals: Jelly Null MD [Primary Care Provider] -
[2018-02-07] MEDS: VIT D3 PO SCH (11:12)
[2018-02-07] MEDS: CALCIUM PO SCH (11:12)
[2018-02-07] MEDS: MAGNESIUM PO SCH (11:12)
--- NOTE | 2018-02-07 11:19 | ASMTLACE ---
LACE Length of stay for Answers: 4-6 days current admission Acuity / Level of Answers: Yes Care: Did the patient have an inpatient admission? Comorbidities - select Answers: Other Notes: Pulmonary Embolism all that apply # of Emergency department Answers: 1-2 visits in the last 6 months Score: 9 Date Signed: 02/07/2018 11:19 AM Electronically Signed By:Anna Carbajal RN
--- NOTE | 2018-02-07 11:23 | ASMTCMCOM ---
CM Note CM Note Notes: Spoke w/pt about discharging with homecare, RN/PT. Pt does not feel she needs homecare, even with O2. Pt states she has used oxygen before. Gave pt list of homecare agencies in case she changes her mind. Pt's son will pick her up. DC Plan: Independent Date Signed: 02/07/2018 11:22 AM Electronically Signed By:Anna Carbajal RN
[2018-02-07] MEDS: PANTOPRAZOLE SODIUM 40 MG TAB PO SCH (11:49)
[2018-02-07 11:54] VITALS: BP 128/69
--- NOTE | 2018-02-07 18:46 | GDS ---
DISCHARGE DIAGNOSES: 1. Pneumonia. 2. Chronic obstructive pulmonary disease exacerbation. 3. Acute hypoxemic respiratory failure. 4. Pulmonary emboli. 5. Congestive heart failure. 6. Sepsis. 7. Hypertension. STUDIES AND PROCEDURES DONE: 1. CT angio of the chest. 2. Echocardiogram. PHYSICAL EXAM: GENERAL: The patient is alert. VITAL SIGNS: Afebrile at 37.2, pulse 64, respiratory r ate is 18, blood pressure is 128/69, she is saturating 86% on room air, greater than 90% on 2 L. HOSPITAL COURSE: Patient is an 82-year-old female who presented to the emergency room with complaint s of shortness of breath. She was evaluated and diagnosed with: 1. Pulmonary emboli. During this hospitalization, she had a CT angio that demonstrated evidence of pulmonary emboli. This is in the setting of an extended airplane ride. The patient was started on X arelto. A prescription has been provided for her at the time of disposition. She will continue this in the outpatient setting. 2. Pneumonia. She has been treated with Levaquin during this hospitalization and will continue this at the time of disposition with close followup in the outpatient setting with repeat chest x-ray in 7-10 days to assure resolution. 3. Acute respiratory failure. At baseline, the patient is not on oxygen. She is requiring 2 L at t he time of disposition. She will be discharged with supplemental oxygen in the outpatient setting to follow with her primary care doctor for further evaluation. 4. COPD with acute exacerbation. She has been treated with steroids as well as nebulizing treatment s. I have discharged the patient with a prescription for prednisone. This will need to be titrated in the outpatient setting by her primary care provider. 5. Congestive heart failure is noted on her chest x-ray. Echocardiogram was performed that was esse ntially stable. She did receive 1 dose of IV Lasix during this hospitalization with no further inter vention needed at this time. 6. Sepsis. This has resolved. 7. Disposition: The patient will be discharged home today with home health care. FOLLOWUP: Followup will be with her primary care physician, Dr. Jelly Null. I have instructed e patient to follow up on 02/09/2018. Home health care will include RN as well as PT. DISCHARGE MEDICATIONS: Please refer to EMR form. I have provided the patient prescriptions for Advai r, Levaquin, prednisone, Xarelto. Again, followup will be with her primary care physician for a pred nisone taper in the outpatient setting. TIME SPENT WITH PATIENT: I spent greater than 35 minutes in the care, coordination, and management o f the patient's disposition. /[id number]/MODL
== END 2018-02-07 16:46 | disposition home or self-care (01) | DRG 871 ==
LOC: F3E 20:10 → OBSVTOIN 20:51
PROVIDERS: ADMIT Internal Medicine; ATTEND Internal Medicine
DX: A41.9 Sepsis, unspecified organism (principal); I26.99 Other pulmonary embolism without acute cor pulmonale; J18.9 Pneumonia, unspecified organism; J96.21 Acute and chronic respiratory failure with hypoxia; J44.1 Chronic obstructive pulmonary disease with (acute) exacerbation; I11.0 Hypertensive heart disease with heart failure; I50.9 Heart failure, unspecified; Z87.891 Personal history of nicotine dependence
CPT/HCPCS: 82435-PO; 82565-PO; 82947-PO; 84132-PO; 84295-PO; 84484-PO; 84520-PO; 85014-PO; 96374; 97116-GP; 97161-GP; 97165-GO; 97530-GO; 97530-GP; 97535-GO; G8978-GP-CK; G8979-GP-CI; G8980-GP-CI; G8987-GO-CI; G8988-GO-CI; G8989-GO-CI; J1650; J1940; J1956; J2930; J7512; Q9967

== ENCOUNTER → 2018-05-14 | Outpatient (CLI) | payer OTHER, BC | LOC: BMCIMAGING 13:05 | PROVIDERS: ATTEND Internal Medicine Rheumatology | DX: Z13.820 Encounter for screening for osteoporosis (principal); M81.0 Age-related osteoporosis without current pathological fracture; Z78.0 Asymptomatic menopausal state ==